=== PATIENT | female | born 1995 | race Caucasian/White ===

== ENCOUNTER 2023-10-31 02:41 | Emergency (ER) | payer OTHER, SELFPAY ==
[2023-10-31 02:42] VITALS: BP 114/57; PULSE 96; RESP 17; TEMP 36.1; O2SAT 100; BMI 22.1
--- NOTE | 2023-10-31 02:46 | RAD_ITS ---
INDICATION: Trauma, heavy object fell on foot, pain EXAMINATION/TECHNIQUE: X-RAY - LEFT XR Foot Min 3 Views COMPARISON: None. FINDINGS: SOFT TISSUES: No significant soft tissue swelling. No radiopaque foreign body detected. BONES/JOINTS: No acute fracture or subluxation. Normal alignment. Preservation of the joint space(s). No suspicious osseous lesion observed. RAD/Foot min 3 Views IMPRESSION: Negative left foot Electronically Signed: Federico Crisostomo MD at 3:53 EST ,
--- NOTE | 2023-10-31 04:18 | EX.ED.DYSGE1 ---
HPI History of Present Illness Chief Complaint: Lower Extremity Injury Informant: patient Narrative Narrative: Patient is a 28-year-old female with no significant past medical history. She states she was at work this evening when roughly 1 hour prior to arrival she dropped a part weighing approximately 15 to 20 pounds onto the top of her left foot. She states that she developed sudden onset pain and swelling. She reports she is able to ambulate but is painful to do so. Denies any other injury but has concern for potential fracture secondary to the trauma and therefore was sent in for evaluation. [facility] Medical History (Updated 10/31/23 @ 04:[address] Umair Mar, DO) Spontaneous pneumothorax Allergy/AdvReac Type Severity Reaction Status Date / Time Penicillins Allergy PT UNSURE Verified 10/31/23 02:43 OF REACTION Social History Smoking Status: Never smoker ROS ROS ED Constitutional Constitutional ED: Denies chills or fever(s) ENT ENT ED: Denies sore throat Cardiovascular Cardiovascular: Denies chest pain Respiratory/Chest Respiratory/Chest: Denies cough or dyspnea Gastrointestinal Gastrointestinal: Denies abdominal pain, diarrhea, nausea or vomiting Genitourinary Genitourinary ED: Denies dysuria Musculoskeletal Musculoskeletal: Reports other Details: Positive left foot pain Integumentary Reports Abrasions and other; Denies rash Neurologic Neurologic: Denies headache(s), paresthesias or weakness Hematologic/Lymphatic Hematologic/Lymphatic: Denies easy bleeding or easy bruising EXAM Physical Exam Const Vital Signs: 10/31/23 02:42 10/31/23 04:27 Temperature 97 F L Temperature Source Temporal Pulse Rate 96 67 Respiratory Rate 17 15 Blood Pressure 114/57 L Blood Pressure Mean 76 Pulse Ox 100 97 Oxygen Delivery Method Room Air Positive well nourished and well developed General Appearance ED: well developed HEENT HEENT Narrative: Normocephalic atraumatic Eyes PERRL and EOMs intact bilaterally Neck supple Resp normal respiratory effort and clear to auscultation bilaterally Cardio regular rate and regular rhythm Extremity Extremity Narrative: Left lower extremity is neurovascularly intact. There is soft tissue swelling with superficial abrasion and ecchymosis to the dorsum of the left foot consistent with trauma. No obvious bony deformity or joint effusion. Achilles tendon is intact and ankle ligaments are stable. Remainder of the exam is normal. Neuro oriented x3, CN's II-XII intact bilaterally and no sensory deficits noted Sensorium / Orientation: alert Motor Exam: strength 5/5 throughout Psych mental status grossly normal Skin Skin Narrative: Soft tissue swelling with abrasions and ecchymosis to the dorsal aspect of the left foot as documented above MDM MDM MDM Narrative Medical decision making narrative: Patient arrived to the ER with stable vitals and a direct trauma to the left foot. Differential diagnosis is for contusion versus fracture. Secondary to this an x-ray was obtained. Revealed no acute fracture or retained foreign body and by exam there is no signs of ligamentous or tendon injury. Therefore patient has a foot contusion and can be treated symptomatically and discharged. Radiography Diagnostic Testing: Clinical Impression(s) from Imaging Studies Foot X-Ray 10/31/23 02:46 IMPRESSION: Negative left foot Electronically Signed: Federico Crisostomo MD at 3:53 EST , Left foot x-ray as interpreted by the emergency medicine physician reveals no acute fracture or dislocation Discharge Plan Triage Chief Complaint: Lower Extremity Injury ED Provider: Umair Mar Dx/Rx/DC Orders Clinical Impression: Contusion of foot, left Instructions: ED Foot Contusion Primary Care Provider: Elba Simmons Referrals: Elba Simmons MD [Primary Care Provider] - Activity Restrictions/Additional Instructions: Your x-rays did not show any fracture or dislocation indicating you have a foot contusion. Ice the area to reduce pain and swelling take Tylenol and or Motrin for pain control as well and return to the ER should you have any further concerns or worsening of symptoms. Disposition Disposition: Home, Self Care Discharge Date/Time: 10/31/23 04:29 Capacity Legal Exhauster Engineer Reflex Medical hold order details:: IF a medical hold is selected below, a suggested order for a MEDICAL HOLD will reflex upon signing the document. Next of kin: [place] law dictates a PRIORITY LIST for identifying legal decision-maker/legal next of kin in the following order (LNOK): 1st: The patient?s legal guardian, if any 2nd: The patient's spouse (if status is questionable, consult Risk Management) 3rd: The patient?s adult child(hilda) (majority, if multiple children) 4th: The patient?s parents 5th: The patient?s adult siblings (majority, if multiple children siblings)
[2023-10-31 04:27] VITALS: PULSE 67; RESP 15; O2SAT 97
== END 2023-10-31 04:29 | disposition home or self-care (01) ==
PROVIDERS: Emergency Provider Emergency Medicine; PCP Internal Medicine; Visit Provider Emergency Medicine
DX: S90.32XA Contusion of left foot, initial encounter (principal); X58.XXXA Exposure to other specified factors, initial encounter; Y93.89 Activity, other specified; Y99.0 Civilian activity done for income or pay; Y92.69 Other specified industrial and construction area as the place of occurrence of the external cause
CPT/HCPCS: 73630; 99282